=== PATIENT | male | born 1960 ===

== ENCOUNTER → 2018-01-15 | Outpatient (CLI) | payer OTHER ==
[~2018-01-15] MED LIST: ASPI81TA28 PO; ATOR-22 PO
--- NOTE | 2018-01-15 13:11 | DIAGNOSTIC IMAGING REPORT ---
CAROTID DOPPLER NECK ART CLINICAL HISTORY: 57 years-old Male presenting with CAD. TECHNIQUE: Real-time grayscale and color and spectral Doppler ultrasound imaging of the bilateral carotid arteries was performed. NASCET criteria was used in evaluating this study. COMPARISON: None. FINDINGS: Right: Common carotid: Patent. Peak systolic velocity 63 cm/s. Internal carotid artery: Patent. Peak systolic velocity 50 cm/s. Systolic ratio: 0.8. External carotid artery: Patent. Peak systolic velocity 57 cm/s. Left: Common carotid: Patent. Peak systolic velocity 72 cm/s. Internal carotid artery: Patent. Peak systolic velocity 54 cm/s. Systolic ratio: 0.7. External carotid artery: Patent. Peak systolic velocity 50 cm/s. Bilateral antegrade flow within the vertebral arteries. Reference ranges: Stenosis measurements are compared to reference velocity parameters. ICA peak systolic velocity (PSV) < 125 cm/s normal or indicating < 50% stenosis; ICA PSV 125-230 cm/s equivalent to 50-69% stenosis; ICA PSV > 230 cm/s equivalent to greater than or equal to 70% stenosis. ICA PSV to common carotid artery PSV ratio < 2 normal or < 50% stenosis; 2-4 equates to 50-69% stenosis, > 4 equates to greater than or equal to 70% stenosis. Normal ICA end-diastolic velocity less than 40. Blood pressure Brachial: Right: 133/93 mmHg, Left: 128/92 mmHg. IMPRESSION: No hemodynamically significant stenosis seen within the carotid arteries. Electronically signed by: Nima Martínez M.D. 01/15/2018 1:09 PM Dictated Date/Time: 01/15/2018 1:08 PM
== END | disposition home or self-care (01) ==
LOC: C.LABBC 12:38
PROVIDERS: ATTEND Internal Medicine
DX: I25.10 Atherosclerotic heart disease of native coronary artery without angina pectoris (principal)

== ENCOUNTER → 2018-01-21 | Outpatient (CLI) | payer OTHER ==
[~2018-01-21] VITALS: Ht 188 cm; Wt 78.0 kg
[~2018-01-21] MED LIST changes: +BENZOCAIN/TETRACA/BUTAM SPRAY 200 APPLN/20 GM SPRY ONE; +CANNULA ONE; +MEPERIDINE HCL 50 MG/ML CARP ONE; +MIDAZOLAM HCL 1 MG/ML 2ML VIAL ONE
[2018-01-21 07:55] VITALS: BP 131/85; PULSE 63; TEMP 36.8; O2SAT 98; Ht 188 cm; Wt 78.0 kg
[2018-01-21 08:20] VITALS: BP 131/92; PULSE 71; O2SAT 100
[2018-01-21 08:25] VITALS: BP 134/92; PULSE 71; O2SAT 100
[2018-01-21 08:30] VITALS: BP 122/80; PULSE 72; O2SAT 99
[2018-01-21 08:35] VITALS: BP 110/79; PULSE 68; O2SAT 99
--- NOTE | 2018-01-21 08:46 | History & Physical Bridge Note ---
H&P Re-Evaluation Bridge Note: I have examined the patient, reviewed the History & Physical and in the interval since the performance of the History & Physical I have noted the following changes of clinical significance: No changes noted
--- NOTE | 2018-01-21 08:47 | Pre Sedation Assessment ---
Pre Sedation Assessment General Date of Sedation: Jan 21, 2018. Vital Signs Past 12 Hours Date Time Temp Pulse Resp B/P (MAP) Pulse Ox O2 Delivery O2 Flow Rate FiO2 01/21/18 08:40 69 12 116/80 (92) 100 Nasal Cannula 2 01/21/18 07:55 36.8 63 12 131/85 (100) 98 Room Air Review Cardiovascular: regular rate, rhythm, no edema, no gallop, no JVD, no murmur Lungs: lungs clear Pre-Sedation Airway Assessment Smoking Status: Never Smoker Hx of Sleep Apnea: No Short Thick Neck: No Oral Cavity: WNL Procedure Planning Contraindications for Sedation: None Current Medications Reviewed: Yes Notes The planned sedation has been discussed with the patient. Informed Consent was obtained. I have identified the patient, determined the appropriateness of sedation and have assessed the patient immediately prior to the procedure. All medicine(s) and interventions are by my order.
--- NOTE | 2018-01-21 08:49 | Discharge Instructions ---
Discharge Instructions Procedure Procedure Date: Jan 21, 2018. Reason for Visit: Branch Retinal Artery Occlusion *Karel Will Do*. Discharge Discharge Date: Jan 21, 2018. Discharge Diagnosis: Normal [place] Last Recorded Wt (Kilograms): 78 Anesthesia Post Anesthesia Instructions: If you have had General Anesthesia or IV Sedation: * Do not drive today. * Resume driving when surgeon permits. * Do not make important decisions or sign legal documents today. * Call surgeon for: 1. Temperature elevations greater than 101 degrees F. 2. Uncontrollable pain. 3. Excessive bleeding. 4. Persistent nausea and vomiting. 5. Medication intolerance (nausea, vomiting or rash). * For nausea and vomiting use only clear liquids such as: tea, soda, bouillon until nausea subsides, then gradually increase diet as tolerated. * If you have any concerns or questions, call your surgeon's office. If physician is unavailable and it is an emergency, call 911 or go to the nearest emergency room. Instructions Activity Recommendations: limitations as noted below Recommended Home Diet: resume previous diet Allergies: Coded Allergies: No Known Allergies (Unverified , 09/19/16) Provider Instructions ACTIVITY RECOMMENDATIONS: Resume activities as tolerated with no limitations unless specified. __ No lifting over __ pounds for 24 hours. __ Do not engage in vigorous exercise, sexual activity, or sports for 24 hours. __ Do not drive or operate any motorized equipment for 24 hours. __ You may return to work/school tomorrow. __ Nothing to eat or drink until gag reflex returns. __ No HOT or WARM liquids for _6_ hours. __ Avoid "scratchy" foods such as potato chips or pretzels for 24 hours following procedure. SPECIAL CARE: If you experience coughing up or vomiting of blood, contact Follow Up Follow-up with: PCP and Dr Vinson as scheduled Marietta Hernandez Recommendations: Call your doctor if: * Temperature above 101 degrees * Pain not relieved by pain medicine ordered * There is increased drainage or redness from any incision * You have any unanswered questions or concerns. Your Doctors Instructions noted above were prepared by provider Shakir Vinson. Patient Signature Section: Patient Instructions Signature Page Ousmane Osorio Patient (or Guardian) Signature/Date: I have read and understand the instructions given to me by my caregivers. Caregiver/RN/Doctor Signature/Date: The above-named patient and/or guardian has received patient instructions on this date. + Original Patient Signature Page (only) stays with chart. Please make copy for patient.
[2018-01-21 09:26] VITALS: BP 104/77; PULSE 70; O2SAT 96
--- NOTE | 2018-01-21 17:17 | TEE ---
*NOTICE TO RECEIVING LIBERTARIAN AGENCY This information is strictly Confidential and protected under [place] law. [place] law prohibits you from making any further disclosure of this information unless further disclosure is expressly permitted by the written consent of the person to whom it pertains or is authorized by law. A general authorization for the release of medical or other information is not sufficient for this purpose. Hospital accepts no responsibility if the information is made available to any other person, INCLUDING THE PATIENT. Interpretation Summary * Name: FRANSICO PHELPS I Study Date: 01/21/2018 07:52 AM BP: 131/92 mmHg * Patient Location: [facility] HR: 69 * : 1960 (M/d/yyyy) Gender: Male Height: 74 in * Age: 57 yrs Ethnicity: DC Weight: 170 lb * Ordering Physician: Bo Millan * Referring Physician: Bo Millan D.O. * Performed By: Mehdi Mathews RCS * * Reason For Study: Eval for CSOE * BSA: 2.0 m2 * No cardiac source of emboli noted. * -- Conclusions -- * The left ventricle is normal in size. * There is borderline concentric left ventricular hypertrophy. * The left ventricular wall motion is normal. * Left ventricular systolic function is normal. * Ejection Fraction = 60-65%. * The left atrial size is normal. * No thrombus is detected in the left atrial appendage. * There are no valvular abnormalities * The intraatrial septum is mildly redundant but not aneurysmal. * The interatrial septum is intact with no evidence for an atrial septal defect. * Injection of contrast documented no interatrial shunt. * Distal arch and descending aorta are free of atheroma. Procedure Details * [place] Probe #1 utilized for procedure. * The study was performed in Cardiopulmonary Department. * Time out was conducted by the physician, nurse, and technical data analyst with positive identification of patient and procedure. * Informed consent for Transesophageal Echocardiogram was obtained prior to the procedure. * An intravenous line was placed. A topical anesthetic agent was used for oropharangeal anesthesia. A bite block was inserted. * The patient's vital signs, including blood pressure, heart rate, pulse oximetry and cardiac rhythm were monitored throughout the procedure . * Meperidine 37.5 mg administered for sedation. * Midazolam 6 mg administered for sedation. * A multifrequency, multiplane transesopheageal echocardiographic endoscope was inserted and manipulated in the standard fashion to achieve multiplane views. * The transesophageal probe was passed without difficulty. * Procedure Start Time - 819 Procedure Stop Time - 838 * Contrast injection with agitated saline was performed. * The usual views were obtained; basal, mid-esophageal, transgastric and aortic views. * The patient tolerated the procedure well without evidence of orophangeal or esophageal trauma. * A 2D transesophageal echocardiogram was performed. * A 2D transesophageal echocardiogram with color flow Doppler was performed. * A 2D transesophageal echocardiogram with Doppler and color flow Doppler was performed. Left Ventricle * The left ventricle is normal in size. * There is borderline concentric left ventricular hypertrophy. * Left ventricular systolic function is normal. * Ejection Fraction = 60-65%. * The left ventricular wall motion is normal. Right Ventricle * The right ventricle is normal in size and function. Atria * The left atrial size is normal. * No thrombus is detected in the left atrial appendage. * Right atrial size is normal. * The intraatrial septum is mildly redundant but not aneurysmal. * Injection of contrast documented no interatrial shunt. * The interatrial septum is intact with no evidence for an atrial septal defect. Mitral Valve * The mitral valve anatomy is normal. * There is no mitral valve stenosis. * Significant mitral regurgitation is absent. Tricuspid Valve * The tricuspid valve anatomy is normal. * There is no tricuspid stenosis. * There is trace tricuspid regurgitation. Aortic Valve * The aortic valve is trileaflet. * No hemodynamically significant valvular aortic stenosis. * No aortic regurgitation is present. Pulmonic Valve * The pulmonic valve is not well seen, but is grossly normal. Great Vessels * The aortic root is normal size. * Distal arch and descending aorta are free of atheroma. Pericardium * There is no pericardial effusion.
== END | disposition home or self-care (01) ==
LOC: C.CPL 07:15
PROVIDERS: ATTEND Internal Medicine Cardiovascular Disease
DX: H34.233 Retinal artery branch occlusion, bilateral (principal); E78.5 Hyperlipidemia, unspecified